=== PATIENT | female | born 1975 | race Caucasian/White ===

== ENCOUNTER 2018-02-23 10:14 | Emergency (ER) | payer BC, OTHER ==
[2018-02-23 10:49] VITALS: TEMP 98.2; BMI 31.3
--- NOTE | 2018-02-23 11:22 | PDOC ---
History of Present Illness - General Chief Complaint: Headache Stated Complaint: SENT BY PCP Time Seen by Provider: 02/23/18 11:20 History Source: Patient Exam Limitations: No Limitations Past History - Past Medical History Allergies/Adverse Reactions: Allergies Allergy/AdvReac Type Severity Reaction Status Date / Time No Known Allergies Allergy Verified 02/23/18 10:45 Home Medications: Ambulatory Orders Diazepam [Valium] 5 mg PO BID #10 tablet MDD 10mg 02/23/18 Methylprednisolone [Medrol Dose Rosendo] 4 mg PO ASDIR #21 tablet 02/23/18 Anemia: No Asthma: Yes (BRONCHIAL ASTHMA USUALLY ONCE A YEAR NEVER HOSPITALIZED) Cancer: No Cardiac Disorders: No CVA: No COPD: No CHF: No Diabetes: No GI Disorders: Yes (ACID REFULX, IBS) Disorders: No HTN: No Hypercholesterolemia: No Liver Disease: No Seizures: No Thyroid Disease: No - Surgical History Abdominal Surgery: No Appendectomy: No Cardiac Surgery: No Cholecystectomy: No Lung Surgery: No Neurologic Surgery: No Orthopedic Surgery: No - Immunization History Immunization Up to Date: Yes - Suicide/Smoking/Psychosocial Hx Smoking History: Former smoker Have you smoked in the past 12 months: No If you are a former smoker, when did you quit?: 20YRS Information on smoking cessation initiated: No Hx Alcohol Use: No Drug/Substance Use Hx: No Substance Use Type: None Hx Substance Use Treatment: No *Physical Exam - Vital Signs Last Vital Signs Temp Pulse Resp BP Pulse Ox 98.2 F 61 16 108/68 99 02/23/18 10:46 02/23/18 10:46 02/23/18 10:46 02/23/18 10:46 02/23/18 10:46 ED Treatment Course - LABORATORY CBC & Chemistry Diagram: 02/23/18 12:05 02/23/18 12:05 Medical Decision Making - Medical Decision Making Pt was seen at bedside, also will be seen by attending Dr. Sy. Pt presenting with complaints of cervical neck pain and stiffness, which is radiating to her head, R face, and R shoulder. PE showed diminished abduction of R arm due to pain in neck, appears to have neck spasm. Limited flexion and extension of the neck due to pain, mild limit in lateral movement of the head due to pain. No midline spinal tenderness in neck or spine. No parasthesia, no weakness in any extremity, rn plastic surgery grossly intact. Considering spinal stenosis vs cervical disc herniation vs fracture vs muscular spasm. Pt denies history of neck trauma. Ordered work-up including pre-op labs (CBC, CMP, type&screen, coags, ECG, chest x-ray, UA) and cervical spine MRI. Provided 0.5 mg IV ativan and 2 mg IV morphine for improvement of spasm and pain control. Will continue to reassess pt and monitor for symptomatic improvement. 02/23/18 12:13 Blood and urine sent for labwork. 02/23/18 12:23 CBC generally WNL. 02/23/18 12:26 UA negative for infection. 02/23/18 12:30 Calling MRI to determine timeline for scan. Dr. Odonnell at bedside to evaluate pt. 02/23/18 12:34 CMP WNL. MRI stated that current pt will be about 1 and 1/2 hour, will call MRI back after questionnaire is finished to reassess timeline. 02/23/18 12:49 Pt in MRI for cervical neck exam. Pt has been stable in the department with pain well-controlled. 02/23/18 13:42 ECG: NSR, no significant ST segment changes; HR 71, IL 148, QRS 72, QTc 432 Chest x-ray clear. Pt returning from MRI. Pending MRI report for admission to determine surgical intervention today vs inpatient stay. 02/23/18 14:23 [id number] MRI/CERVICAL SPINE MRI W/O CONTR Neck pain rule out compression fracture. MRI of the cervical spine noncontrast study. Multiple pulse sequences were completed utilizing the [employer] 1.5T SIGNA MRI system. Sagittal. T2, FLAIR, STIR. CORONAL. T2. AXIAL. T1, T2. No prior studies, x-rays of the cervical spine, or CT of the cervical spine is available for comparison. Findings. No abnormality seen at the pontomedullary junction region. Normal signal intensity of the visualized brainstem, cerebellum. No evidence of tonsillar ectopia. Straightening of the cervical spine is seen on the sagittal images, related to the positioning, and/or muscle spasm. Intact odontoid. The predental space is not widened. C2-C3. Partially desiccated disc. There is no evidence of disc displacement, central spinal canal stenosis, or neural foraminal narrowing. C3-C4. Partially desiccated disc. There is no evidence of disc displacement, central spinal canal stenosis, or neural foraminal narrowing. C4-C5. Partially desiccated disc. There is no evidence of disc displacement, central spinal canal stenosis, or neural foraminal narrowing. C5-C6. Small right paracentral disc protrusion encroaching on the ventral subarachnoid space. The greatest posterior extension of the disc approximately 2 mm. No evidence of central spinal canal stenosis, or neural foraminal narrowing C6-C7 Partially desiccated disc. There is no evidence of disc displacement, central spinal canal stenosis, or neural foraminal narrowing. Upper thoracic spine. Normal height of vertebral bodies, disc spaces. There is no evidence of disc displacement, central spinal canal stenosis, or neural foraminal narrowing. The spinal canal is normal in diameter and accommodates normal appearing spinal cord that shows intrinsically normal signal. Flow-void is observed in the vertebral, carotid arteries. Dominant left vertebral artery. No evidence of pathological bone marrow replacement, bone marrow edema, compression deformities or subluxation. No evidence of prevertebral soft tissue swelling. On T2 coronal images no abnormality seen in the region of the CP angle cisterns. Retention cyst is noted in the right maxillary sinus. Bilateral marcelo bullosa. Impression: C5-C6. Small right paracentral disc protrusion encroaching on the ventral subarachnoid space. The greatest posterior extension of the disc approximately 2 mm. Normal signal intensity of the spinal cord. Intact odontoid, the predental space is not widened Normal height of vertebral bodies. No evidence of pathological bone marrow replacement, bone marrow edema. 02/23/18 15:05 MRI results discussed with pt and Dr. Odonnell by Dr. Sy. Provided 1 g ofirmev, 4 mg IV decadron, and 30 mg IV toradol, because pt still complaining of pain. Will reassess pt for pain. If not improved, Dr. Odonnell will discuss pros/cons of surgery with the pt. 02/23/18 15:06 Pt states pain and ROM still not improved. Dr. Odonnell will come to bedside to discuss next steps with pt. 02/23/18 16:40 Dr. Odonnell spoke with pt and is ok with outpatient follow-up. Providing 5 mg PO Valium and medrol dose pack to pts pharmacy. Pt has follow-up appointment with Dr. Field on . 02/23/18 17:13 *DC/Admit/Observation/Transfer Diagnosis at time of Disposition: Protrusion of cervical intervertebral disc - Discharge Dispostion Disposition: HOME Condition at time of disposition: Stable Decision to Admit order: No - Prescriptions Prescriptions: Diazepam [Valium] 5 mg PO BID #10 tablet MDD 10mg Methylprednisolone [Medrol Dose Rosendo] 4 mg PO ASDIR #21 tablet - Referrals Referrals: Janine Field MD [Staff Physician] - Román Odonnell MD, FAANS [Staff Physician] - - Patient Instructions Printed Discharge Instructions: Herniated Disc, DI for Neck Pain Additional Instructions: You were seen in the ER today for neck pain. The results of your labs and imaging today showed a small protrusion of a disc in your cervical neck (C5-C6) . Please follow-up with Dr. Field for your appointment on to discuss your visit and make sure your symptoms have improved. Please return to the ER if you have any worsening pain, numbness/tingling in your arms or legs, incontinence of urine or stool, weakness in your arms or legs, development of fevers or chills, loss of consciousness, inability to tolerate food or fluids, or any other concerns. - Post Discharge Activity Forms/Work/School Notes: Back to Work
[2018-02-23] MEDS ORDERED: morphine CARPU-JECT 4 MG/1 ML DISP.SYRIN IVPUSH ONE ×3 (11:47→12:33)
[2018-02-23 12:22] LABS: BASO % 1.3 % (0-2.0); EOS % 5.6 % (0-4.5); HEMATOCRIT 38.9 % (32.4-45.2); HEMOGLOBIN 12.9 GM/dL (10.7-15.3); MCH 25.1 pg (25.7-33.7); MCHC 33.2 g/dl (32.0-36.0); MEAN CELL VOLUME 75.4 fl (80-96); MEAN PLT VOLUME 9.5 fl (7.5-11.1); MONO % 6.6 % (3.8-10.2); NEUT % 58.5 % (42.8-82.8); PLATELET COUNT 276 K/MM3 (134-434); RBC 5.15 M/mm3 (3.60-5.2); RDW 16.2 % (11.6-15.6); WHITE BLOOD COUNT 7.9 K/mm3 (4.0-10.0)
[2018-02-23 12:26] LABS: URINE APPEARANCE CLEAR; URINE BILIRUBIN NEGATIVE (<2.0 mg/dL); URINE COLOR LTYELLOW; URINE GLUCOSE (UA) NEGATIVE (NEGATIVE); URINE KETONE NEGATIVE (NEGATIVE); URINE LEUK ESTERASE NEGATIVE (NEGATIVE); URINE NITRITE NEGATIVE (NEGATIVE); URINE PROTEIN NEGATIVE (NEGATIVE); URINE UROBILINOGEN NEGATIVE mg/dL (0.2-1.0)
[2018-02-23] MEDS ORDERED: morphine SULFATE 4 MG/ML VIAL ONE (12:28)
[2018-02-23] MEDS ORDERED: LORazepam 2 MG/ML SDV VIAL ONE (12:29)
[2018-02-23 12:36] LABS: INR 1.03 (0.83-1.09); PROTHROMBIN TIME (PATIENT) 12.2 SEC (9.7-13.0)
[2018-02-23 12:47] LABS: ALBUMIN 3.9 g/dl (3.4-5.0); ALK PHOS 67 U/L (45-117); ANION GAP 7 MMOL/L (8-16); BILIRUBIN,TOTAL 0.2 mg/dL (0.2-1); BLOOD UREA NITROGEN 18 mg/dL (7-18); CALCIUM 8.6 mg/dL (8.5-10.1); CHLORIDE 107 mmol/L (98-107); CO2 26 mmol/L (21-32); CREATININE 0.7 mg/dL (0.55-1.3); GLUCOSE,RANDOM 79 mg/dL (74-106); POTASSIUM 4.6 mmol/L (3.5-5.1); SGOT/AST 16 U/L (15-37); SGPT/ALT 28 U/L (13-61); SODIUM 139 mmol/L (136-145); TOT PROT 7.5 g/dl (6.4-8.2)
--- NOTE | 2018-02-23 13:25 | CONSULT ---
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 She noted difficulty turning her head and feels that it is difficult to find a comfortable position. She has numbness and tingling in her hands and limitations of fine motor tasks. She denies any recent trauma to her neck and is physically fit and works out regularly. She had a similar episode 1 year ago while vacationing in [place] after participating in various vigorous activities such as horseback riding and riding on all terrain vehicles. This episode was self limited and far less in intensity. She describes the current pain: "at least 10 times worse." On physical examination, she is lying with a rolled sheet under her head and is in apparent discomfort. She has grossly full movements, however, strength testing is limited by her neck pain. The patient has diminished sensation and dexterity in the C6 distribution bilaterally. She did not achieve relief from her severe pain with either IV Morphine or Diazepam. The patient also describes a recent history of dysarthria. She has not been aware of any receptive aphasia and her speech is generally fluent on examination. She is able to repeat several tongue twisters without difficulty. We will obtain MRI Cervical and keep her NPO to preserve all options until this exam is reviewed.
--- NOTE | 2018-02-23 13:28 | EKG ---
Test Reason : Blood Pressure : / mmHG Vent. Rate : 071 BPM Atrial Rate : 071 BPM P-R Int : 148 ms QRS Dur : 072 ms QT Int : 398 ms P-R-T Axes : 051 047 050 degrees QTc Int : 432 ms NORMAL SINUS RHYTHM NORMAL ECG NO PREVIOUS ECGS AVAILABLE Confirmed by ARLEEN SANCHEZ MD ([id number]) on 02/23/2018 1:27:44 PM Referred By: Confirmed By:ARLEEN SANCHEZ MD
[2018-02-23] MEDS ORDERED: KETOROLAC TROMETHAMINE 30 MG/1 ML VIAL IVPUSH ONE (14:36)
[2018-02-23] MEDS ORDERED: ACETAMINOPHEN 1000 MG/100 ML VIAL (NON FORMULARY) IVPB ONE (14:36)
[2018-02-23] MEDS ORDERED: DEXAMETHASONE SOD PHOSPHATE 4 MG/1 ML VIAL IVPUSH ONE (14:37)
[2018-02-23] MEDS ORDERED: KETOROLAC TROMETHAMINE 30 MG/1 ML VIAL ONE (14:40)
[2018-02-23] MEDS ORDERED: DEXAMETHASONE SOD PHOSPHATE 4 MG/1 ML VIAL ONE (14:40)
[2018-02-23] MEDS ORDERED: ACETAMINOPHEN INJECTION 100 ML IVPB ONE (14:40)
--- NOTE | 2018-02-23 15:06 | PDOC ---
Attending Attestation - HPI HPI: 02/23/18 15:08 The patient is a 42 year old female, with a significant past medical history of asthma and GERD, who presents to the emergency department with with complaints of cervical neck pain and stiffness, which is radiating to her head, R face, and R shoulder today. The patient denies chest pain, shortness of breath, headache and dizziness. The patient denies fever, chills, nausea, vomit, diarrhea and constipation. The patient denies dysuria, frequency, urgency and hematuria. Allergies: NKDA - Physicial Exam PE: 02/23/18 15:08 Vitals: Triage vital signs reviewed General Appearance: No acute distress, well nourished, well developed Head: Atraumatic Eyes: Pupils equal reactive round, extraocular movement intact Neck: (+) Mild reproducible pain to C5C6. Supple; No nuchal rigidity Chest Wall: Nontender Cardiac: Regular rate and rhythm, no murmurs, no rubs, no gallops Lungs: Clear to auscultation bilateral, good air movement bilaterally Abdomen: Soft, nondistended, normal bowel sounds, nontender to palpation Extremities: Full range of motion to all extremities, no cyanosis, clubbing, or edema Skin: Warm and dry, no rashes or lesions, no rash, no petechiae Neuro: AOX3; Cranial Nerves 2-12 grossly intact, Strength intact to all extremities, Sensation intact to all extremities, gait normal Psych: Normal mood, normal affect - Medical Decision Making 02/23/18 15:08 Documentation prepared by Kassandra Baldwin, acting as medical record coder for Juanjose Sy MD <Kassandra Baldwin - Last Filed: 02/23/18 15:08> - Resident Resident Name: Hailey Hernandez - ED Attending Attestation I have performed the following: I have examined & evaluated the patient, The case was reviewed & discussed with the resident, I agree w/resident's findings & plan, Exceptions are as noted - Medical Decision Making Patient sent to the emergency department for intractable cervical spine pain with slight radiation to the thumb finger distribution with no weakness or sensory loss Pain medications given stat MRI ordered shows cervical disc disease C5-C6 Dr. Busby at bedside discussing options for patient at this time. Plan is to trial patient at home with prescription of Medrol Dosepak Valium patient has appointment see Dr. Otero on will return to ED for any uncontrollable pain or new weakness Findings, the need for follow-up and strict return instructions discussed patient. <Juanjose Sy - Last Filed: 02/23/18 17:08>
[2018-02-23 17:28] VITALS: BP 106/64; PULSE 72
== END 2018-02-23 17:24 | disposition home or self-care (01) ==
LOC: JER 10:14
PROC: 3E033NZ Introduction of Analgesics, Hypnotics, Sedatives into Peripheral Vein, Percutaneous Approach (ICD-10-PCS; principal; 2018-02-23)
PROC: 3E033NZ Introduction of Analgesics, Hypnotics, Sedatives into Peripheral Vein, Percutaneous Approach (ICD-10-PCS; 2018-02-23)
PROC: 3E033NZ Introduction of Analgesics, Hypnotics, Sedatives into Peripheral Vein, Percutaneous Approach (ICD-10-PCS; 2018-02-23)
PROC: 3E0333Z Introduction of Anti-inflammatory into Peripheral Vein, Percutaneous Approach (ICD-10-PCS; 2018-02-23)
PROC: 3E0333Z Introduction of Anti-inflammatory into Peripheral Vein, Percutaneous Approach (ICD-10-PCS; 2018-02-23)
DX: M50.20 Other cervical disc displacement, unspecified cervical region (principal)
CPT/HCPCS: 36415; 71045-TC-FY; 72141-TC; 80053; 81003; 85025; 85610; 86850; 86900; 86901; 93005; 93010; 99283-25; J0131

== ENCOUNTER 2022-06-13 04:30 | Day surgery (SDC) | payer OTHER ==
[2022-06-12 11:42] VITALS: BMI 33.2
[2022-06-13 10:21] VITALS: TEMP 98
[2022-06-13] MEDS ORDERED: ALBUTEROL SO4 0.083% IH SOL 2.5 MG/3 ML VIAL.NEB. NEB ONE (10:36)
[2022-06-13 10:55] VITALS: BP 106/54; PULSE 56; RESP 18
[2022-06-13] MEDS ORDERED: ALBUTEROL SULFATE 0.021% (0.63 MG/3 ML) VIAL.NEB NEB SCH (11:15)
== END 2022-06-13 12:08 | disposition home or self-care (01) ==
LOC: JASU-ENDO 04:30
PROVIDERS: ATTEND Internal Medicine Gastroenterology
PROC: 0DB98ZX Excision of Duodenum, Via Natural or Artificial Opening Endoscopic, Diagnostic (ICD-10-PCS; 2022-06-13)
PROC: 0DB78ZX Excision of Stomach, Pylorus, Via Natural or Artificial Opening Endoscopic, Diagnostic (ICD-10-PCS; 2022-06-13)
PROC: 0DB68ZX Excision of Stomach, Via Natural or Artificial Opening Endoscopic, Diagnostic (ICD-10-PCS; 2022-06-13)
PROC: 0DJD8ZZ Inspection of Lower Intestinal Tract, Via Natural or Artificial Opening Endoscopic (ICD-10-PCS; principal; 2022-06-13 10:00)
DX: Z12.11 Encounter for screening for malignant neoplasm of colon (principal); K29.50 Unspecified chronic gastritis without bleeding; K29.80 Duodenitis without bleeding
CPT/HCPCS: 81025; 88305-TC; 88342-TC; 94640

== ENCOUNTER 2024-03-20 12:39 | Emergency (ER) | payer BC, OTHER ==
[2024-03-20 12:54] VITALS: BP 124/86; PULSE 91; RESP 20; TEMP 98.6; BMI 34.2
[2024-03-20] MEDS ORDERED: ONDANSETRON *ODT* 4 MG TABLET ONE (13:41)
[2024-03-20] MEDS ORDERED: KETOROLAC TROMETHAMINE 30 MG/1 ML VIAL ONE (13:41)
[2024-03-20] MEDS: KETOROLAC TROMETHAMINE 30 MG/1 ML VIAL IM ONE (13:59)
[2024-03-20] MEDS: ONDANSETRON *ODT* 4 MG TABLET SL ONE (14:00)
[2024-03-20] MEDS: HYDROCORTISONE ACETATE 25 MG/SUPP.RECT PR ONE ×2 (14:24→20:12)
[2024-03-20] MEDS: SODIUM PHOSPHATE/NA BIPHOS 133 ML ENEMA PR ONE (15:25)
[2024-03-20] MEDS ORDERED: ACETAMINOPHEN INJECTION 100 ML ONE ×2 (16:06→19:41)
[2024-03-20] MEDS: ACETAMINOPHEN 1000 MG/100 ML BAG IVPB ONE ×2 (16:16→20:13)
[2024-03-20] MEDS ORDERED: MAGNESIUM CITRATE 300 ML BOTTLE ONE (16:30)
[2024-03-20 17:02] LABS: EOS % 0.4 % (0-4.5); HEMATOCRIT 39.7 % (32.4-45.2); HEMOGLOBIN 12.9 GM/dL (10.7-15.3); LYMPH % 7.4 % (8-40); MCH 26.2 pg (25.7-33.7); MCHC 32.6 g/dl (32.0-36.0); MEAN CELL VOLUME 80.3 fl (80-96); MEAN PLT VOLUME 8.2 fl (7.5-11.1); MONO % 4.3 % (3.8-10.2); NEUT % 86.9 % (42.8-82.8); PLATELET COUNT 240 10^3/uL (134-434); RBC 4.94 M/mm3 (3.60-5.2); RDW 15.7 % (11.6-15.6); WHITE BLOOD COUNT 13.3 K/mm3 (4.0-10.0)
[2024-03-20 17:44] LABS: ALBUMIN 3.8 g/dl (3.4-5.0); CALCIUM 8.2 mg/dL (8.5-10.1)
[2024-03-20 17:45] LABS: BLOOD UREA NITROGEN 15.9 mg/dL (7-18)
[2024-03-20 17:49] LABS: CREATININE 0.7 mg/dL (0.55-1.3)
[2024-03-20 17:50] LABS: BILIRUBIN,TOTAL 0.4 mg/dL (0.2-1)
[2024-03-20] MEDS: MAGNESIUM CITRATE 300 ML BOTTLE PO ONE (19:13)
[2024-03-20] MEDS: BISACODYL 5 MG TABLET.DR (FP) PO ONE (19:13)
[2024-03-20] MEDS ORDERED: ACETAMINOPHEN 500 MG TABLET (FP) ONE (19:37)
[2024-03-20] MEDS: GLYCERIN 1 RECTAL SUPPOSITORY, ADULT PR ONE (21:19)
== END 2024-03-20 22:53 | disposition home or self-care (01) ==
LOC: JER 12:39
PROC: 3E033NZ Introduction of Analgesics, Hypnotics, Sedatives into Peripheral Vein, Percutaneous Approach (ICD-10-PCS; principal; 2024-03-20)
PROC: 3E033NZ Introduction of Analgesics, Hypnotics, Sedatives into Peripheral Vein, Percutaneous Approach (ICD-10-PCS; 2024-03-20)
PROC: 3E0133Z Introduction of Anti-inflammatory into Subcutaneous Tissue, Percutaneous Approach (ICD-10-PCS; 2024-03-20)
DX: K59.03 Drug induced constipation (principal); K64.8 Other hemorrhoids; K62.89 Other specified diseases of anus and rectum
CPT/HCPCS: 36415; 72193-TC; 74019-TC-FY; 80053; 84703; 85025; 99285-25; J0131; Q0162; Q9967